=== PATIENT | female | born 1985 | race Caucasian/White ===

== ENCOUNTER 2016-05-18 10:15 | Emergency (ER) | payer OTHER ==
[~2016-05-18] VITALS: Ht 160 cm; Wt 83.8 kg
[~2016-05-18 10:15] MED LIST: ADVAIR IH; ALBUTEROL SULF8.5 GM IH; AMBIEN10 MG PO; ASPIR 8181 M1 PO; BENADRYL25 MG PO; CALCIUM PO; CLARITIN,ALAVAR10 MG PO; FOLIC ACID PO; FOLIC ACID1 MG PO; IBUPROFEN800 MG PO; IRON PO; METHADONE HCL40 MG PO; NAPROSYN500 MG PO; OMEPRAZOLE20 M2 PO; PHENERGAN25 MG PR; PRENATAL TABLE1 EAC3 PO; PROAIR HFA8.5 GM IH; PROVENTIL HFA6.7 GM IH; PROVENTIL,2.5 MG/3 M IH; REGLAN10 MG PO; REGLAN5 MG PO; SUBUTEX PO; TYLENOL WITH C1 EACH PO; ZANTAC150 MG PO
[2016-05-18] MEDS ORDERED: ATIVAN2 MG PO (12:04)
[2016-05-18 12:17] VITALS: BP 135/80
== END 2016-05-18 12:18 | disposition home or self-care (01) ==
LOC: EME 10:15
DX: F11.23 Opioid dependence with withdrawal (principal); Z88.0 Allergy status to penicillin; Z88.8 Allergy status to other drugs, medicaments and biological substances; F17.200 Nicotine dependence, unspecified, uncomplicated
CPT/HCPCS: 99281; 99284

== ENCOUNTER 2016-10-28 17:08 | Emergency (ER) | payer OTHER ==
[~2016-10-28] VITALS: Ht 160 cm; Wt 70.6 kg
[~2016-10-28 17:08] MED LIST changes: +ATIVAN2 MG PO
[2016-10-28 17:58] LABS: HEMATOCRIT 37.3 % (36.0-46.0); MCH 28.3 PG (29.0-34.0); MCHC 33.8 G/DL (30.0-36.0); MCV 83.6 FL (83-99); MEAN PLAT.VOLUME 10.5 uM^3 (9.5-12.4); PLATELET COUNT 243 K/uL (156-360); RBC DIS.WIDTH-SD 39.2 % (39-53); RED BLOOD COUNT 4.46 M/uL (3.80-5.20); WHITE BLOOD COUNT 13.1 K/uL (4.1-10.2)
[2016-10-28 18:33] LABS: ADD MIUA? YES; BILIRUBIN NEGATIVE; BLOOD NEGATIVE; COLOR STRAW ((YELLOW)); GLUCOSE (STRIP) NEGATIVE; KETONES NEGATIVE; LEUKOCYTES TRACE; NITRITE NEGATIVE; PROTEIN (STRIP) NEGATIVE; SPECIFIC GRAVITY 1.005 (1.000-1.030); UROBILINOGEN 0.2 MG/DL (0.2-1.0)
[2016-10-28 18:39] LABS: BACTERIA NONE SEEN /HPF; EPITHELIAL CELLS 1+ /HPF; MUCUS NONE SEEN /LPF; RED BLOOD CELLS 0-5 /HPF (0-5); UCUL ADDED? NO; WHITE BLOOD CELLS 0-5 /HPF (0-5)
[2016-10-28 19:31] LABS: CHLORIDE 108 mEq/L (99-109); POTASSIUM 4.3 mEq/L (3.7-5.4); SODIUM 137 mEq/L (136-147)
[2016-10-28 19:33] LABS: GLUCOSE 96 mg/dL (70-99)
[2016-10-28 19:34] LABS: ANION GAP 8 MEQ/L (2-14)
[2016-10-28 19:37] LABS: GFR ESTIMATE (CALCULATED) > 59 mL/min/
[2016-10-28 19:38] LABS: UREA NITROGEN (BUN) 5 mg/dL (9-23)
[2016-10-28] MEDS ORDERED: ZOFRAN ODT4 MG PO (20:37)
[2016-10-28] MEDS ORDERED: PRENATAL VITAM1 EAC7 PO (20:37)
[2016-10-28 20:56] VITALS: BP 127/87
== END 2016-10-28 20:57 | disposition home or self-care (01) ==
LOC: EME 17:08
DX: O26.891 Other specified pregnancy related conditions, first trimester (principal); R10.2 Pelvic and perineal pain; R10.31 Right lower quadrant pain; O21.9 Vomiting of pregnancy, unspecified; O99.331 Smoking (tobacco) complicating pregnancy, first trimester; F17.200 Nicotine dependence, unspecified, uncomplicated; Z3A.09 9 weeks gestation of pregnancy; Z88.0 Allergy status to penicillin
CPT/HCPCS: 76705; 76801; 80048; 81003; 84702; 85027; 87086; 99281; 99284

== ENCOUNTER 2017-04-05 13:52 | Outpatient (CLI) | payer OTHER ==
[~2017-04-05] VITALS: Ht 160 cm; Wt 78.5 kg
[~2017-04-05 13:52] MED LIST changes: +PRENATAL VITAM1 EAC7 PO; +ZOFRAN ODT4 MG PO
[2017-04-05 14:30] LABS: HEMATOCRIT 32.6 % (36.0-46.0); HEMOGLOBIN 11.2 G/DL (11.9-15.5); MCH 29.8 PG (29.0-34.0); MCHC 34.4 G/DL (30.0-36.0); MCV 86.7 FL (83-99); PLATELET COUNT 227 K/uL (156-360); RBC DIS.WIDTH-CV 13.2 % (11.8-14.6); RBC DIS.WIDTH-SD 41.2 % (39-53); RED BLOOD COUNT 3.76 M/uL (3.80-5.20)
[2017-04-05 14:39] LABS: CHLORIDE 107 mEq/L (99-109); POTASSIUM 4.1 mEq/L (3.7-5.4); SODIUM 140 mEq/L (136-147)
[2017-04-05 14:40] LABS: GLUCOSE 95 mg/dL (70-99)
[2017-04-05 14:44] LABS: CREATININE 0.6 mg/dL (0.6-1.3); GFR ESTIMATE (CALCULATED) > 59 mL/min/
[2017-04-05 14:45] LABS: UREA NITROGEN (BUN) 11 mg/dL (9-23)
[2017-04-05 14:50] LABS: TROP-I INTERPRETATION NEGATIVE; TROPONIN-I < 0.01 ng/mL (0.0-0.30)
[2017-04-05 16:16] LABS: APPEARANCE CLOUDY ((CLEAR)); BILIRUBIN NEGATIVE; BLOOD NEGATIVE; COLOR YELLOW ((YELLOW)); GLUCOSE (STRIP) NEGATIVE; KETONES NEGATIVE; LEUKOCYTES NEGATIVE; NITRITE NEGATIVE; PROTEIN (STRIP) NEGATIVE; SPECIFIC GRAVITY 1.015 (1.000-1.030); UROBILINOGEN 0.2 MG/DL (0.2-1.0)
[2017-04-05 16:24] LABS: BACTERIA RARE /HPF; EPITHELIAL CELLS RARE /HPF; MUCUS NONE SEEN /LPF; RED BLOOD CELLS 0-5 /HPF (0-5); UCUL ADDED? NO; WHITE BLOOD CELLS 0-5 /HPF (0-5)
[2017-04-05 17:35] VITALS: BP 108/68
[2017-04-05 19:45] LABS: SOURCE SWAB
[2017-04-05 21:42] LABS: CANDIDA DNA PROBE POSITIVE; GARDNERELLA DNA PROBE NEGATIVE; TRICHOMONAS DNA PROBE NEGATIVE
== END 2017-04-05 19:30 | disposition home or self-care (01) ==
LOC: LDRP-OP 13:52 → EME 13:52 → 2WEST 17:34 → EDSTATUS 17:34 → 2WEST 19:30
PROVIDERS: Emergency Medicine; Midwife; Obstetrics & Gynecology
DX: O26.893 Other specified pregnancy related conditions, third trimester (principal); N89.8 Other specified noninflammatory disorders of vagina; R06.02 Shortness of breath; R07.9 Chest pain, unspecified; F19.11 Other psychoactive substance abuse, in remission; O99.343 Other mental disorders complicating pregnancy, third trimester; F43.10 Post-traumatic stress disorder, unspecified; F41.0 Panic disorder [episodic paroxysmal anxiety]; F41.9 Anxiety disorder, unspecified; F32.9 Major depressive disorder, single episode, unspecified; O99.513 Diseases of the respiratory system complicating pregnancy, third trimester; J45.909 Unspecified asthma, uncomplicated; O99.333 Smoking (tobacco) complicating pregnancy, third trimester; F17.200 Nicotine dependence, unspecified, uncomplicated; O99.353 Diseases of the nervous system complicating pregnancy, third trimester; G40.909 Epilepsy, unspecified, not intractable, without status epilepticus; Z3A.32 32 weeks gestation of pregnancy
CPT/HCPCS: 59025; 71046; 80048; 81003; 84484; 85027; 87480; 87491; 87502; 87510; 87591; 87660; 93005; 93971; 99281; 99283; G0378

== ENCOUNTER 2017-05-06 22:32 | Outpatient (CLI) | payer OTHER ==
[~2017-05-06] VITALS: Ht 160 cm; Wt 77.3 kg
[2017-05-06 22:39] VITALS: BP 118/61
[2017-05-06] MEDS ORDERED: CLARITIN10 M3 PO (23:57)
[2017-05-06] MEDS ORDERED: PROZAC40 MG PO (23:59)
[2017-05-06] MEDS ORDERED: PROZAC20 MG PO (23:59)
[2017-05-07] MEDS ORDERED: PRILOSEC10 MG PO (00:01)
[2017-05-07] MEDS ORDERED: KLONOPIN1 MG PO (00:01)
[2017-05-07] MEDS ORDERED: PROAIR HFA8.5 GM IH (00:03)
== END 2017-05-07 00:23 | disposition home or self-care (01) ==
LOC: LDRP-OP 22:32 → 2WEST 22:33 → LDRP-OP 06-29 11:36
DX: O36.8190 Decreased fetal movements, unspecified trimester, not applicable or unspecified (principal); Z3A.00 Weeks of gestation of pregnancy not specified
CPT/HCPCS: 59025; G0378

== ENCOUNTER 2017-05-09 07:49 | Inpatient (IN) | payer OTHER ==
[~2017-05-09] VITALS: Ht 160 cm; Wt 79.6 kg
[2017-05-09] VITALS (25 sets, daily range): BP systolic 81–136; BP diastolic 49–85
[~2017-05-09 07:49] MED LIST changes: +CLARITIN10 M3 PO; +KLONOPIN1 MG PO; +PRILOSEC10 MG PO; +PROZAC20 MG PO; +PROZAC40 MG PO
[2017-05-09 08:28] LABS: BASOPHIL (%) 0.4 % (0-1); EOSINOPHIL (%) 0.9 % (0-5); EOSINOPHIL COUNT 0.1 K/uL (0-0.3); HEMATOCRIT 31.3 % (36.0-46.0); HEMOGLOBIN 10.5 G/DL (11.9-15.5); IMMATURE GRANULOCYTE (%) 3.6 % (0.0-0.7); LYMPHOCYTE (%) 24.9 % (15-42); MCH 28.8 PG (29.0-34.0); MCHC 33.5 G/DL (30.0-36.0); MCV 85.8 FL (83-99); MONOCYTE (%) 7.8 % (3-12); MONOCYTE COUNT 0.6 K/uL (0-0.8); NEUTROPHIL (%) 62.4 % (45-76); NEUTROPHIL COUNT 4.9 K/uL (1.8-6.4); PLATELET COUNT 216 K/uL (156-360); RBC DIS.WIDTH-CV 13.7 % (11.8-14.6); RBC DIS.WIDTH-SD 42.4 % (39-53); RED BLOOD COUNT 3.65 M/uL (3.80-5.20); WHITE BLOOD COUNT 7.9 K/uL (4.1-10.2)
[2017-05-09 10:32] LABS: BENZODIAZEPINES, URINE SCREEN POSITIVE (200 ng/mL)
[2017-05-09] MEDS ORDERED: IBUPROFEN800 MG PO (19:08)
[2017-05-10 07:09] VITALS: BP 103/71
[2017-05-10 14:33] VITALS: BP 92/57
[2017-05-11 07:21] VITALS: BP 109/76
== END 2017-05-11 11:15 | disposition home or self-care (01) | DRG 774 ==
LOC: LDRP-OP 07:49 → 2WEST 07:50 → LDRP-OP 14:32 → 2WEST 18:51 → LDRP-OP 06-29 00:42
PROVIDERS: Nurse Practitioner; Obstetrics & Gynecology Gynecology
PROC: 00HU33Z Insertion of Infusion Device into Spinal Canal, Percutaneous Approach (ICD-10-PCS; principal; 2017-05-09)
PROC: 10907ZC Drainage of Amniotic Fluid, Therapeutic from Products of Conception, Via Natural or Artificial Opening (ICD-10-PCS; principal; 2017-05-09)
PROC: 10E0XZZ Delivery of Products of Conception, External Approach (ICD-10-PCS; principal; 2017-05-09)
PROC: 3E0P7VZ Introduction of Hormone into Female Reproductive, Via Natural or Artificial Opening (ICD-10-PCS; principal; 2017-05-09)
PROC: 3E0R3BZ Introduction of Anesthetic Agent into Spinal Canal, Percutaneous Approach (ICD-10-PCS; principal; 2017-05-09)
DX: O36.5930 Maternal care for other known or suspected poor fetal growth, third trimester, not applicable or unspecified (principal); O99.334 Smoking (tobacco) complicating childbirth; F17.210 Nicotine dependence, cigarettes, uncomplicated; O69.81X0 Labor and delivery complicated by cord around neck, without compression, not applicable or unspecified; O10.92 Unspecified pre-existing hypertension complicating childbirth; Z3A.37 37 weeks gestation of pregnancy; Z37.0 Single live birth; O99.344 Other mental disorders complicating childbirth; F41.8 Other specified anxiety disorders; O99.284 Endocrine, nutritional and metabolic diseases complicating childbirth; E05.90 Thyrotoxicosis, unspecified without thyrotoxic crisis or storm; J45.909 Unspecified asthma, uncomplicated; F43.10 Post-traumatic stress disorder, unspecified; O60.14X0 Preterm labor third trimester with preterm delivery third trimester, not applicable or unspecified; O44.03 Complete placenta previa NOS or without hemorrhage, third trimester; O44.43 Low lying placenta NOS or without hemorrhage, third trimester; O16.4 Unspecified maternal hypertension, complicating childbirth; R56.9 Unspecified convulsions; K21.9 Gastro-esophageal reflux disease without esophagitis; G43.909 Migraine, unspecified, not intractable, without status migrainosus; O99.02 Anemia complicating childbirth; O99.354 Diseases of the nervous system complicating childbirth; O99.52 Diseases of the respiratory system complicating childbirth; O99.62 Diseases of the digestive system complicating childbirth; D50.9 Iron deficiency anemia, unspecified
CPT/HCPCS: 80306 90; 85025; 88307; C1755; J1050; J3010; J7120

== ENCOUNTER 2017-07-19 05:35 | Day surgery (SDC) | payer OTHER ==
[~2017-07-19] VITALS: Ht 160 cm; Wt 69.0 kg
[~2017-07-19 05:35] MED LIST changes: -KLONOPIN1 MG PO; +MOTRIN800 MG PO; +XANAX1 MG PO
[2017-07-19 06:29] LABS: HEMATOCRIT 40.7 % (36.0-46.0); HEMOGLOBIN 13.2 G/DL (11.9-15.5); MCH 28.4 PG (29.0-34.0); MCHC 32.4 G/DL (30.0-36.0); MCV 87.7 FL (83-99); PLATELET COUNT 215 K/uL (156-360); RBC DIS.WIDTH-CV 13.6 % (11.8-14.6); RBC DIS.WIDTH-SD 43.5 % (39-53); RED BLOOD COUNT 4.64 M/uL (3.80-5.20); WHITE BLOOD COUNT 7.4 K/uL (4.1-10.2)
[2017-07-19] MEDS ORDERED: AMBIEN10 MG PO (06:54)
[2017-07-19] MEDS ORDERED: ABILIFY10 MG PO (06:58)
[2017-07-19] MEDS ORDERED: HYDROCODON-ACE1 EAC7 PO (07:23)
[2017-07-19] MEDS ORDERED: MOTRIN800 MG PO (07:23)
[2017-07-19 07:29] VITALS: BP 109/72
[2017-07-19 09:10] VITALS: BP 123/86
[2017-07-19 09:52] VITALS: BP 130/81
== END 2017-07-19 09:55 | disposition home or self-care (01) ==
LOC: SDC 05:35
PROVIDERS: Obstetrics & Gynecology
PROC: 0UT74ZZ Resection of Bilateral Fallopian Tubes, Percutaneous Endoscopic Approach (ICD-10-PCS; principal; 2017-07-19)
DX: Z30.2 Encounter for sterilization (principal); G40.909 Epilepsy, unspecified, not intractable, without status epilepticus; J45.909 Unspecified asthma, uncomplicated; E03.9 Hypothyroidism, unspecified; F41.8 Other specified anxiety disorders; Z88.0 Allergy status to penicillin; F17.210 Nicotine dependence, cigarettes, uncomplicated
CPT/HCPCS: 84702; 85027; 86850; 86900; 86901; 88302; J0131; J1100; J1885; J2250; J2405; J2710; J3010; J7643; S0020

== ENCOUNTER 2017-08-09 02:48 | Emergency (ER) | payer OTHER ==
[~2017-08-09] VITALS: Ht 162.6 cm; Wt 62.7 kg
[~2017-08-09 02:48] MED LIST changes: +ABILIFY10 MG PO; +HYDROCODON-ACE1 EAC7 PO
[2017-08-09 03:08] LABS: HEMATOCRIT 37.4 % (36.0-46.0); HEMOGLOBIN 12.8 G/DL (11.9-15.5); MCH 28.8 PG (29.0-34.0); MCHC 34.2 G/DL (30.0-36.0); MCV 84.2 FL (83-99); PLATELET COUNT 229 K/uL (156-360); RBC DIS.WIDTH-CV 12.9 % (11.8-14.6); RBC DIS.WIDTH-SD 39.6 % (39-53); RED BLOOD COUNT 4.44 M/uL (3.80-5.20); WHITE BLOOD COUNT 6.8 K/uL (4.1-10.2)
[2017-08-09 03:23] LABS: ALBUMIN 4.2 g/dL (3.2-4.8); CHLORIDE 106 mEq/L (99-109); POTASSIUM 3.4 mEq/L (3.7-5.4); SODIUM 142 mEq/L (136-147)
[2017-08-09 03:26] LABS: GLUCOSE 90 mg/dL (70-99); TOTAL PROTEIN 6.9 g/dL (6.4-8.3)
[2017-08-09 03:28] LABS: TOTAL BILIRUBIN 0.5 mg/dL (0.0-1.0)
[2017-08-09 03:29] LABS: SERUM ETHYL ALCOHOL 182 mg/dL
[2017-08-09 03:30] LABS: ALKALINE PHOSPHATASE 56 IU/L (3-129); CREATININE 0.9 mg/dL (0.6-1.3); GFR ESTIMATE (CALCULATED) > 59 mL/min/
[2017-08-09 03:31] LABS: AST (GOT) 14 IU/L (2-34); UREA NITROGEN (BUN) 12 mg/dL (9-23)
[2017-08-09 03:33] LABS: ACETAMINOPHEN (TYLENOL) < 10 mcg/mL (10-30); ALT (GPT) 14 IU/L (3-49); SALICYLATE < 5.0 MG/DL (15-30)
[2017-08-09 07:53] VITALS: BP 97/75
== END 2017-08-09 08:04 | disposition home or self-care (01) ==
LOC: EME → EDBD 02:48 → EME 02:48
PROVIDERS: Emergency Medicine
DX: T40.1X1A Poisoning by heroin, accidental (unintentional), initial encounter (principal); F10.99 Alcohol use, unspecified with unspecified alcohol-induced disorder; Y90.6 Blood alcohol level of 120-199 mg/100 ml; F17.200 Nicotine dependence, unspecified, uncomplicated
CPT/HCPCS: 80053; 85027; 93005; 99281; 99285; G0480; J7030